=== PATIENT | female | born 1965 | race Hispanic/Latino ===

== ENCOUNTER 2024-07-18 06:12 | Day surgery (SDC) | payer OTHER ==
[2024-07-14 09:36] LABS: BASOPHILS # (AUTO) 0.03 K/uL (0.00-0.20); BASOPHILS % (AUTO) 0.4 % (0.0-5.0); EOSINOPHILS # (AUTO) 0.37 K/uL (0.00-0.70); EOSINOPHILS % (AUTO) 5.3 % (0.0-8.0); HEMATOCRIT 37.5 % (36-48); IMMATURE GRANULOCYTE ABSOLUTE 0.05 K/uL (0-1); LYMPHOCYTES # (AUTO) 1.6 K/uL (1.0-4.8); LYMPHOCYTES % (AUTO) 22.8 % (21.0-51.0); MEAN CORPUSCULAR HEMOGLOBIN 28.3 pg (27.0-33.0); MEAN CORPUSCULAR VOLUME 88.4 fL (79-99); MONOCYTES # (AUTO) 0.4 K/uL (0.1-1.0); MONOCYTES % (AUTO) 6.2 % (3.0-13.0); NEUTROPHILS # (AUTO) 4.5 K/uL (1.8-7.7); NEUTROPHILS % (AUTO) 64.6 % (40.0-77.0); PLATELET COUNT (AUTO) 286 K/uL (130-400); RED BLOOD CELL COUNT(AUTO) 4.24 MIL/uL (4.00-5.50); RED CELL DISTRIBUTION WIDTH 14.5 % (11.0-15.5)
[2024-07-14 09:41] LABS: CREATININE 1.6 mg/dL (0.5-1.0); POTASSIUM 4.9 mmol/L (3.5-5.1)
[2024-07-14 09:44] LABS: INR 1.01 (0.85-1.15); PROTHROMBIN TIME 10.9 SEC (9.6-11.6)
[2024-07-14 09:45] LABS: PARTIAL THROMBOPLASTIN TIME 32.1 SEC (26.3-35.5)
[2024-07-14 09:48] VITALS: BP 161/76; PULSE 75; RESP 18; TEMP 97.2
[2024-07-14 09:54] LABS: APPEARANCE,URINE CLOUDY (CLEAR); BILIRUBIN,URINE NEGATIVE (NEGATIVE); COLOR,URINE LIGHT-YELLOW (YELLOW); GLUCOSE, URINE (UA) >=1000 mg/dL (NEGATIVE); KETONES,URINE NEGATIVE (NEGATIVE); LEUKOCYTE ESTERASE ,URINE NEGATIVE Leu/uL (NEGATIVE); NITRATE,URINE NEGATIVE (NEGATIVE); OCCULT BLOOD,URINE NEGATIVE (NEGATIVE); PH,URINE 5.5 (5.0-8.0); PROTEIN,URINE 100 mg/dL (NEGATIVE); UROBILINOGEN,URINE 0.2 mg/dL (0.2-1.0)
[2024-07-14 09:55] LABS: ADD UA MICROSCOPIC YES
[2024-07-14 09:57] LABS: BACTERIA,URINE MANY /HPF (None Seen); MUCUS,URINE RARE LPF (None Seen); SQUAMOUS EPITHELIAL CELL,UR MANY /HPF (0-2)
[2024-07-14 10:07] LABS: B-TYPE NATRIURETIC PEPTIDE 27 pg/mL (0-100)
--- NOTE | 2024-07-14 11:27 | HMCIMG ---
CHEST 1VW HISTORY: Preop COMPARISON: 11/06/2008 FINDINGS: A frontal projection of the chest was obtained. No acute pulmonary infiltrates is seen. The heart is borderline enlarged. Degenerative changes are seen. No evidence of aortic calcification is seen. IMPRESSION: 1. No acute pulmonary infiltrate is seen.
--- NOTE | 2024-07-14 13:02 | EKG ---
[facility] Test Date: 2024-07-14 Test Time: 10:17:01 Pat Name: LON LAZAR Department: [facility] Room: Gender: F [employer] Operator: [id number] : 1965 Requested By: JAKE PROCTOR Order Number: [id number] Reading MD: Rusty Jo Measurements Intervals [place] Rate: 71 P: 52 [place]: 130 QRS: 18 QRSD: 74 T: 69 QT: 445 QTc: 484 Interpretive Statements Sinus rhythm Low voltage, precordial leads No previous ECG available for comparison Electronically Signed On 07-17-2024 17:24:44 DIRECTOR OF SEARCH ENGINE OPTIMIZATION by Rusty Jo Please click the below link to view image of tracing.
--- NOTE | 2024-07-15 11:04 | NUR ---
REPORT REPORTED BMP/UA/URINE CX TO DR Sea PROCTOR. OK TO PROCEED
[~2024-07-18] VITALS: Ht 157.5 cm; Wt 101.0 kg
[2024-07-18] VITALS (8 sets, daily range): BP systolic 139–178; BP diastolic 74–82; PULSE 64–81; RESP 14–18; TEMP 97.4–97.5
[~2024-07-18 06:12] MED LIST: DAPA5TAB PO; DULO60CA64 PO; ESOM40CA66 PO; GABA300C PO; INSU100C14 SQ; INSU3INS3 SQ; LORA10TA7 PO; NIFE60TA5 PO; PROP20TA7 PO; ROSU10TA72 PO; TACR1CAP10 PO; TIRZ7.5P SQ; VITAMIN D PO
--- NOTE | 2024-07-18 06:38 | NUR ---
consult: dr. mateus arias made aware of patient statin cough, sore throat and temp 99.1 po. pt's wbc 7.0 on 07/14/24. ok to proceed with procedure
[2024-07-18] MEDS ORDERED: ASPI-449 PO (07:00)
[2024-07-18] MEDS: 0.9%NACL 1000ML 1,000 ML IV SCH (07:01)
[2024-07-18] MEDS ORDERED: LIDOCAINE HCL 400MG/20ML VIAL ONE (12:09)
[2024-07-18] MEDS ORDERED: IOHEXOL 350 MG/ML 100ML INFUS..BTL IV ONE (12:09)
[2024-07-18] MEDS ORDERED: HEParin-NS 1,000 UNIT/500 ML 1,000 ML IV ONE (12:09)
[2024-07-18] MEDS ORDERED: VERAPAMIL HCL 2.5 MG/ML VIAL ONE ×2 (12:09→13:11)
[2024-07-18] MEDS ORDERED: HEParin 10,000 UNIT/10ML (1,000 UNIT/ML) VIAL ONE (12:09)
[2024-07-18] MEDS ORDERED: NITROGLYCERIN 50MG VIAL ONE (12:10)
[2024-07-18] MEDS ORDERED: MIDAZOLAM HCL 1 MG/ML 2ML VIAL ONE ×2 (12:26→12:52)
[2024-07-18] MEDS ORDERED: FENTanyl CITRate PF 50 MCG/1 ML 2ML VIAL ONE (12:26)
[2024-07-18] MEDS ORDERED: HEParin-NS 1,000 UNIT/500 ML 500 ML IV ONE (12:54)
[2024-07-18] MEDS ORDERED: cloPIDOgrel 300MG TAB ONE (13:17)
[2024-07-18] MEDS ORDERED: ASPIRIN 81MG CHEW TAB ONE (13:17)
[2024-07-18] MEDS ORDERED: GLUCAGON 1MG KIT 1 MG ML IM PRN (14:00)
[2024-07-18] MEDS ORDERED: 0.9%NACL 1000ML 1,000 ML IV SCH (14:00)
[2024-07-18] MEDS ORDERED: DEXTROSE 50%-WATER 50 ML DISP.SYRIN IV PRN (14:00)
--- NOTE | 2024-07-18 14:13 | PRN ---
PROCEDURE REPORT DATE OF PROCEDURE: Jul 18, 2024 CHART WRITER: [ Juani arias MD] PROCEDURE PERFORMED: Conscious sedation Ultrasound guided right radial artery access Selective left coronary artery angiogram Selective right coronary artery angiogram Left heart catheterization IVUS of the LAD and left main Status post successful IVUS guided PTCA/PCI of the prox to mid LAD x1 (3 x 30 mm vega Ulster TAHIR) TR band 13 corazon over right radial artery INDICATION: Unstable angina DESCRIPTION OF PROCEDURE: After informed consent was obtained, the patient was prepped and draped in the usual sterile fashion. A 6 Burmese arterial sheath was inserted in the right radial artery using ultrasound guidance with first pass wall puncture. The art erial sheath was aspirated and flushed. A 6 Burmese JL 3.5 was then advanced to the ascending aorta over an exchange length J-tip guidewire, was aspirated and flushed, and was used for selective coronary angiograms in multiple obliquities. A JR-4 was advanced in a similar fashion to the ascending aorta over the J- tipped guidewire and was used for selective right coronary angiograms in multiple oblique views with findings as outlined below. The JR-4 catheter advanced into the LV and pressures were obtained with a pull-back across the aortic valve. Following review of the angiographic images decision was made to intervene on her prox to mid critical LAD stenosis. [place] [address] units of [place] heparin, 324 mg of aspirin, and 300 mg of Plavix p.o.. Following therapeutic ACT we advanced a [place] into the distal LAD under fluoroscopic guidance. We proceeded with PTCA using a 2.5 by 20 mm compliant balloon to nominal pressures serially within the mid and proximal segments. We then proceeded with IVUS imaging of the mid LAD prox LAD and left main. We then deployed a 3 x 30 mm vega Ulster drug-eluting stent within the prox to mid LAD to nominal pressures. We then post dilated the stent using a 3 x 27 mm noncompliant balloon to 14 [place] respectively. Repeat IVUS imaging revealed excellent stent apposition and expansion with no dissections or perforations. At this time final angiographic images confirmed EMIGDIO three flow with no perforations or dissections. All wires and catheters removed from the body and A TR band was placed over right radial artery with patent hemostasis. Patient tolerated procedure well with no postprocedure complication was transferred to laborer powerhouse holding in stable condition FLUOROSCOPY TIME: 3.2 min LEFT HEART HEMODYNAMICS: LVEDP 16 mm Hg and no gradient Ao CORONARY ANGIOGRAM: LEFT MAIN: Patent and 0% stenosis. Gives rise to LCx and LAD. LEFT ANTERIOR DESCENDING: Large vessel giving rise to two Diagonal branches. There is 80% prox-mid LAD stenosis just after the first diagonal artery with EMIGDIO 3 flow. LEFT CIRCUMFLEX: Large and gives rise to two OM branches. 0% stenosis. RIGHT CORONARY ARTERY: Large, dominant vessel giving rise to PDA and PL branches. 0% stenosis. HEMOSTASIS: TR band 12 corazon over right radial artery INTERVENTIONS: Status post successful IVUS guided PTCA/PCI of the prox to mid LAD x1 (3 x 30 mm vega Ulster drug-eluting stent) COMPLICATIONS: None FINDINGS: Normal coronary anatomy and severe obstructive CAD status post successful revascularization of the prox to mid LAD. ESTIMATED BLOOD LOSS: 5 cc RECOMMENDATIONS/INSTRUCTIONS: Aggressive risk factor modification along with DAPT (aspirin 81 mg daily/Plavix 75 mg daily) for a total of six months. Continue high-intensity statin therapy along with beta-travis Follow up in cardiology clinic 1-2 weeks post discharge CONTRAST DELIVERED TO PATIENT (mL): 150cc JUANI Ward MD, MD Jul 18, 2024 14:13
--- NOTE | 2024-07-18 16:55 | NUR ---
WENT INTO ROOM TO START REMOVING THE VASBAND PT DISCONNECTED HERSELF AND WENT TO THE RESTROOM
--- NOTE | 2024-07-18 17:00 | NUR ---
VAS BAND REMOVED SITE ASYMPTOMATIC
[2024-07-19] MEDS ORDERED: cloPIDOgrel 75MG TAB PO SCH (09:00)
[2024-07-19] MEDS ORDERED: ASPIRIN 81MG CHEW TAB PO SCH (09:00)
== END 2024-07-18 17:30 | disposition home or self-care (01) ==
LOC: DAH 06:12
PROVIDERS: ATTEND Student in an Organized Health Care Education/Training Program
DX: I25.118 Atherosclerotic heart disease of native coronary artery with other forms of angina pectoris (principal); I12.9 Hypertensive chronic kidney disease with stage 1 through stage 4 chronic kidney disease, or unspecified chronic kidney disease; E11.22 Type 2 diabetes mellitus with diabetic chronic kidney disease; N18.30 Chronic kidney disease, stage 3 unspecified; E11.65 Type 2 diabetes mellitus with hyperglycemia; I11.9 Hypertensive heart disease without heart failure; E78.5 Hyperlipidemia, unspecified; Z79.01 Long term (current) use of anticoagulants; R06.00 Dyspnea, unspecified; Z94.4 Liver transplant status; Z98.890 Other specified postprocedural states; Z79.899 Other long term (current) drug therapy
CPT/HCPCS: 80048; 83880; 85025; 85610; 85730; 87086; 81001; 36415; 71045; 93005; 93458; 92978; 92979; 85347; 82948; A4223 ×3; Q9965 ×2; C1769 ×3; C1725 ×2; C1874; C1894; A4649; C1887; C1753; J3010; J3490 ×3; J7030; J1644 ×3; J2250 ×2; Q9967; A4215; A4222; A4221; A4663; A4216; A4606; C9600; 96360; 96361; 99156; 99157